=== PATIENT | female | born 1955 | race Caucasian/White ===

== ENCOUNTER 2023-06-16 19:46 | Observation (INO) ==
[2023-06-16] MEDS ORDERED: Rocuronium 50 mg VIAL 10 mg/ml 5 ml VIAL (50 mg) ONE (23:25)
[2023-06-16] MEDS ORDERED: Midazolam 2 mg/2 ml VIAL 1 mg/ml 2 ml VIAL (2 mg) ONE (23:37)
[2023-06-16] MEDS ORDERED: Dexamethasone IV 4 MG/ML VIAL 1 ml VIAL ONE (23:37)
[2023-06-16] MEDS ORDERED: Ondansetron 4 mg VIAL 2 MG/ML 2 ml VIAL ONE (23:37)
[2023-06-16] MEDS ORDERED: fentaNYL 100 mcg/2 ml 50 MCG/ML VIAL ONE (23:37)
[2023-06-16] MEDS ORDERED: Propofol 10 MG/ML 20 ML BTL ONE (23:37)
[2023-06-16] MEDS ORDERED: Lidocaine 2% PF 5 ML VIAL ONE (23:37)
[2023-06-17] MEDS ORDERED: Clindamycin 900 MG/50 **NS BAG 900 MG/50 ML BAG ONE (00:03)
[2023-06-17] MEDS ORDERED: Bupivacaine 0.25% SDV 30 ML ONE (00:28)
[2023-06-17] MEDS ORDERED: Acetaminophen IV 1 GM/100ML 1,000 MG/100 ML BAG IV ONE (01:12)
[2023-06-17] MEDS ORDERED: Propofol 10 MG/ML 20 ML BTL ONE (01:49)
[2023-06-17] MEDS ORDERED: fentaNYL 100 mcg/2 ml 50 MCG/ML VIAL ONE (01:50)
[2023-06-17] MEDS ORDERED: fentaNYL 100 mcg/2 ml 50 MCG/ML VIAL IV PRN (02:21)
[2023-06-17] MEDS ORDERED: Naloxone 0.4 mg VIAL 0.4 mg/ml 1 ml VIAL IV PRN (02:21)
[2023-06-17] MEDS ORDERED: Ondansetron 4 mg VIAL 2 MG/ML 2 ml VIAL IV PRN (02:23)
[2023-06-17] MEDS ORDERED: Dextrose 50% Syringe 50 ml 25 GM/50 ML SYRINGE IV PUSH PRN (02:28)
[2023-06-17] MEDS ORDERED: Calcium Carb (TUMS) 500 mg CHEW TAB PO PRN (02:30)
[2023-06-17] MEDS ORDERED: Morphine 2 MG/ML SYRINGE IV PRN (03:29)
[2023-06-17 05:41] LABS: ABS Lymphocytes 0.8 10^3/uL (1.0-4.8); ABS Monocytes 0.3 10^3/uL (0.0-0.9); ABS Neutrophils 8.4 10^3/uL (1.5-7.6); ABS Nucleated RBC 0.01 10^3/ul; Eosinophil % 0.3 %; Hematocrit 40.7 % (35-45); Hemoglobin 14.3 g/dL (11.5-14.3); Lymphocyte % 8.7 %; Mean Corpuscular Hemoglobin 30.5 pg (27-33); Mean Corpuscular Hgb Conc 35.2 g/dL (31-36); Mean Corpuscular Volume 86.6 fL (80-97); Mean Platelet Volume 8.1 fL (7.5-11.2); Nucleated Red Blood Cells % 0.1 %/100WBC (0.0-0.8); Platelet Count 215 10^3/uL (150-450); Red Blood Count 4.71 10^6/uL (3.63-4.92); Red Cell Distribution Width 13.8 % (12-17); White Blood Count 9.7 10^3/uL (3.8-11.8)
[2023-06-17 06:13] LABS: Calcium 7.9 mg/dL (8.6-10.3); Creatinine, Serum 1.33 mg/dL (0.51-0.95); Potassium 4.3 mmol/L (3.5-5.0); eGFR CKD-EPI 43.9 (>60)
[2023-06-17] MEDS: Enoxaparin 40 MG/0.4 ML SYR SUBCUT SCH (08:58)
[2023-06-17 14:06] VITALS: BP 126/68
== END 2023-06-17 16:50 | disposition home or self-care (01) ==
LOC: ED 19:46 → AA 19:46 → OR 23:00 → SDS 23:00 → SSU 23:00 → AA 23:23 → SDS 23:28 → OR 06-17 00:19 → SDS 06-17 00:21 → SSU 06-17 03:08
PROVIDERS: ADMIT Surgery Surgical Critical Care; ATTEND Surgery Surgical Critical Care